=== PATIENT | female | born 2000 | race Caucasian/White ===

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

== ENCOUNTER 2020-10-17 03:07 | Emergency (ER) | payer OTHER ==
--- NOTE | 2020-10-17 03:22 | ED Physician Documentation ---
PD HPI NVD - Stated complaint Stated Complaint: NAUSEA, CHEST PRESSURE - Chief complaint Chief Complaint: General - History obtained from History obtained from: Patient - History of Present Illness Timing - onset: How many days ago (2) Timing - duration: Days (2) Timing - details: Gradual onset (she was Rx scopolamine patch for motion sickness by her PCP, in prep for her returning to college (flying to [place]). Previously used Dramamine but makes her sleepy. PCP felt the patch would work better. She wanted to ensure not side effects from it so tried it 2 days ago at home, before travel.), Still present (worse this evening, so she is wondering about scopolamine withdrawal instead/in addition now.), Other (onset of blurred vision, dry mouth, lightheaded, and dizzy several hours after placing patch behind right ear. She removed the scopolamine patch after just 3/4 of a day and washed with soap and water. Has continued with symptoms yesterday and now into overnight, with actually worse dizziness, nausea) Associated symptoms: Dizzy, Loss of appetite (nausea). No: Fever, Abdominal pain Contributing factors: Other (scopolamine patch for part of a day). No: Sick contact, Bad food Worsened by: Moving. No: Eating Similar symptoms before: Has not had sx before Recently seen: Clinic (routine physical before going back to college.) Review of Systems Constitutional: denies: Fever, Chills Nose: denies: Rhinorrhea / runny nose, Congestion Throat: denies: Sore throat Respiratory: denies: Cough Skin: denies: Rash, Lesions Endocrine: denies: Weight loss PD PAST MEDICAL HISTORY - Past Medical History HEENT: Other (motion sickness easily) - Present Medications Home Medications: Ambulatory Orders Medication Instructions Recorded Confirmed Cyclobenzaprine [Flexeril] 10 mg PO DAILY 10/17/20 10/17/20 Meclizine [Antivert] 25 mg PO Q6H PRN #20 tablet 10/17/20 dexAMETHasone [Decadron] 4 mg PO DAILY 3 Days #12 tablet 10/17/20 - Allergies Allergies/Adverse Reactions: Allergies Allergy/AdvReac Type Severity Reaction Status Date / Time No Known Drug Allergies Allergy Verified 10/17/20 03:20 PD ED PE NORMAL - Vitals Vital signs reviewed: Yes (some tachypnea, without really obvious. ) - General General: Alert and oriented X 3, Well developed/nourished - HEENT HEENT: PERRL, EOMI (no nystagmus) - Neck Neck: Supple, no meningeal sign, No adenopathy - Cardiac Cardiac: RRR, No murmur - Respiratory Respiratory: Clear bilaterally - Derm Derm: Normal color, Warm and dry - Neuro Neuro: Alert and oriented X 3, purchase analyst 2-12 intact, No motor deficit, No sensory deficit, Normal speech Results - Vitals Vitals: Vital Signs - 24 hr 10/17/20 10/17/20 03:15 05:14 Temperature 36.8 C Heart Rate 97 85 Respiratory 16 21 Rate Blood Pressure 131/76 H 106/94 H O2 Saturation 100 100 Oxygen O2 Source Room air - Labs Labs: Laboratory Tests 10/17/20 10/17/20 03:49 03:49 Sodium 135 Potassium 2.9 L Chloride 109 Carbon Dioxide 16 L Anion Gap 10.0 BUN 10 Creatinine 0.7 Estimated GFR (MDRD) 106 Glucose 107 H Calcium 9.0 Magnesium 1.9 Total Bilirubin 0.5 AST 18 ALT 23 Alkaline Phosphatase 83 Total Protein 7.3 Albumin 4.0 Globulin 3.3 Albumin/Globulin Ratio 1.2 TSH 4.42 PD MEDICAL DECISION MAKING - ED course Complexity details: reviewed results (low potassium, partly may be related to hyperventilation (low CO2 of 16 corroborates the clinical appearance of hyperventilating some). This should normalize with more regular respirations, but can give supplement as well. She says she is feeling reasonably better after fluids/meds here.), re-evaluated patient (reference at [facility] and some case report of treatment of symptoms (side effects and withdrawal effects) can be done with Meclizine. ), considered differential (some of the symptoms sound like anticholinergic side effects with blurred vision, dry mouth and some confusion. May be withdrawal symptoms, though would seem less likely after just 1 day of the patch. There does seem to be some hyperventilation component on exam as well. ), d/w patient Departure - Departure Disposition: 01 Home, Self Care Clinical Impression: Nausea, Dizziness, Side effect of medication, Hypokalemia Condition: Stable Record reviewed to determine appropriate education?: Yes Instructions: Hypokalemia Dc Follow-Up: [facility] [Provider Group] Prescriptions: Meclizine [Antivert] 25 mg PO Q6H PRN #20 tablet PRN Reason: Vertigo dexAMETHasone [Decadron] 4 mg PO DAILY 3 Days #12 tablet Comments: Stay well-hydrated through the day today. Ondansetron if needed for nausea e very 4-6 hours. I would anticipate the effects of the scopolamine to wear off more through the day today. Hydration will be helpful. Also add some potassium containing supplements or foods as your potassium was a little bit low. This would also account for some of the numbness and tingling feeling. I would anticipate improvement over the next day back to normal. For subsequent travel, you can use a combination of dexamethasone which is a mild steroid medicine but also helps with nausea. Take this for 1 to 2 days prior to travel and the day of as well. To add add meclizine every 6 hours if needed for motion sickness. Discharge Date/Time: 10/17/20 05:18
[2020-10-17] MEDS ORDERED: SODIUM CHLORIDE 0.9% 1,000 ML IV STA (03:37)
[2020-10-17] MEDS ORDERED: ONDANSETRON 4 MG/2 ML VIAL IVP STA ×2 (03:37→04:55)
[2020-10-17] MEDS ORDERED: diazePAM INJ 5 MG/ML SYRINGE IVP STA (03:38)
[2020-10-17] MEDS ORDERED: DEXAMETHASONE 10 MG/ML VIAL IVP STA (03:43)
[2020-10-17 04:08] LABS: ALBUMIN/GLOBULIN RATIO 1.2 (1.0-2.2); BILIRUBIN,TOTAL 0.5 mg/dL (0.2-1.0); CREATININE 0.7 mg/dL (0.4-1.0); MAGNESIUM 1.9 mg/dL (1.7-2.8); TOTAL PROTEIN 7.3 g/dL (6.7-8.2)
[2020-10-17] MEDS ORDERED: POTASSIUM CHLORIDE 20 MEQ TABLET PO STA (04:47)
[2020-10-17] MEDS ORDERED: POTASSIUM CHLOR 10 MEQ/100 ML 10 MEQ/100 ML BAG IV ONE (04:47)
[2020-10-17] MEDS ORDERED: ONDANSETRON ODT 4 MG Prepack 2 TL PRN (04:59)
[2020-10-17 05:15] VITALS: BP 106/94
== END 2020-10-17 05:18 | disposition home or self-care (01) ==
LOC: ED 03:07
DX: R42 Dizziness and giddiness (principal); R11.0 Nausea; T44.3X5A Adverse effect of other parasympatholytics [anticholinergics and antimuscarinics] and spasmolytics, initial encounter; E87.6 Hypokalemia
CPT/HCPCS: 36415; 80053; 83735; 84443; 93005; 96374; 96375; 96376; 99284; A9270

== ENCOUNTER 2020-10-20 06:53 | Emergency (ER) | payer OTHER ==
--- NOTE | 2020-10-20 07:11 | ED Physician Documentation ---
PD HPI HEENT - Stated complaint Stated Complaint: SOA/CHEST PX - Chief complaint Chief Complaint: Resp - History obtained from History obtained from: Patient - History of Present Illness Timing - onset: How many days ago (She had started with dizziness lightheadedness and some ear pressure after scopolamine patch several days ago. Seen in the ER and found to have some mild hyperventilation and low potassium. Discharged with Zofran. She is continued with dizziness and nausea and now having some ringing in her ears) Timing - duration: Days Timing - details: Gradual onset, Still present, Waxing and waning Location: Right ear, Left ear, Other (also overnight was having some chest pressure and aching feeling. The vertigo is worse with head movement and sitting up, and lying on her side in bed.). No: Sinuses Associated symptoms: No: Fever, Congestion, Rhinorrhea, Headache (minimal headache at times, no consistent.), Cough Similar symptoms before: No diagnosis (previously get motion sickness easily for years. Episodes of vertigo with movement at times. Has had consistent symptoms the past several days. Had Rx for scopolamine patch to try for motion sickness and Flexeril for upper back pains. Symptoms really after those meds, though similar to prior sxs.) Recently seen: Clinic (5 days ago with initial Rxs. Then in ER 3 days ago for presumed side effects of meds. Follow up in clinic yesterday and is getting Neuro referral for her vertigo (not ENT per patient). Has had worse symptoms since yesterday with tinnitus, feeling chest pressure overnight. No vision loss, focal weak.), Emergency Dept Review of Systems Constitutional: reports: Chills. denies: Fever Eyes: reports: Photophobia (mild the past few days. Less today.) Ears: reports: Tinnitus/ringing. denies: Ear pain (but has feeling of pressure in ears, left more.), Drainage/discharge Nose: reports: Sinus pressure / pain. denies: Rhinorrhea / runny nose, Co ngestion Throat: denies: Sore throat (but feeling of dry throat) Cardiac: reports: Chest pain / pressure (last night while lying in bed.). denies: Palpitations, Pedal edema, Calf pain Respiratory: reports: Dyspnea. denies: Cough GI: reports: Nausea. denies: Abdominal Pain, Vomiting, Diarrhea : reports: Frequency. denies: Dysuria, Discharge Skin: denies: Rash Neurologic: denies: Focal weakness, Numbness, Difficulty speaking, Near syncope (but feeling of vertigo when sitting up. Able to walk without ataxia.), Altered mental status, Headache, Head injury PD PAST MEDICAL HISTORY - Past Medical History Past Medical History: Yes Cardiovascular: None Respiratory: None Neuro: Migraines, Motion sickness Endocrine/Autoimmune: None HEENT: Other Musculoskeletal: Chronic back pain - Past Surgical History Past Surgical History: No - Present Medications Home Medications: Ambulatory Orders Medication Instructions Recorded Confirmed Cyclobenzaprine [Flexeril] 10 mg PO DAILY 10/17/20 10/20/20 Meclizine [Antivert] 25 mg PO Q6H PRN #20 tablet 10/17/20 10/20/20 dexAMETHasone [Decadron] 4 mg PO DAILY 3 Days #12 tablet 10/17/20 10/20/20 Fluticasone [Flonase] 2 sprays PAZ DAILY #1 bottle 10/20/20 Meclizine [Antivert] 25 mg PO Q6H PRN #30 tablet 10/20/20 dexAMETHasone [Decadron] 4 mg PO DAILY #5 tablet 10/20/20 - Allergies Allergies/Adverse Reactions: Allergies Allergy/AdvReac Type Severity Reaction Status Date / Time No Known Drug Allergies Allergy Verified 10/20/20 07:04 - Social History Does the pt smoke?: No Smoking Status: Never smoker Does the pt drink ETOH?: No Does the pt have substance abuse?: No - Immunizations Immunizations are current?: Yes - POLST Patient has POLST: No PD ED PE NORMAL - Vitals Vital signs reviewed: Yes - General General: Alert and oriented X 3, Well developed/nourished, Other (seems anxious) - HEENT HEENT: PERRL, EOMI (with nystagmus to the left), Ears normal, Pharynx benign. No: Moist mucous membranes (somewhat dry mucosa) - Neck Neck: Supple, no meningeal sign, No adenopathy - Cardiac Cardiac: RRR, No murmur - Respiratory Respiratory: Clear bilaterally - Abdomen Abdomen: Soft, Non tender - Derm Derm: Normal color, Warm and dry - Extremities Extremities: Normal ROM s pain, No edema, No calf tenderness / cord - Neuro Neuro: Alert and oriented X 3, paper bag making machinist 2-12 intact, No motor deficit, No sensory deficit, Normal speech Eye Opening: Spontaneous Motor: Obeys Commands Verbal: Oriented GCS Score: 15 Results - Vitals Vitals: Vital Signs - 24 hr 10/20/20 10/20/20 07:00 07:04 Temperature 36.4 C L 36.4 C L Heart Rate 93 93 Respiratory 16 16 Rate Blood Pressure 119/75 119/75 O2 Saturation 99 99 Oxygen O2 Source Room air - EKG (time done) 07:04 Rate: Rate (enter#) (70) Rhythm: NSR [place]: Normal Intervals: Normal [place] QRS: Normal Ischemia: Normal ST segments. No: ST elevation c/w ischemia, ST depression - Labs Labs: Laboratory Tests 10/20/20 10/20/20 10/20/20 07:45 07:45 07:50 Sodium 136 Potassium 3.1 L Chloride 103 Carbon Dioxide 19 L Anion Gap 14.0 H BUN 9 Creatinine 0.8 Estimated GFR (MDRD) 91 Glucose 94 Calcium 9.8 Urine Color YELLOW Urine Clarity CLEAR Urine pH 7.0 Ur Specific [place] <=1.005 Urine Protein NEGATIVE Urine Glucose (UA) NEGATIVE Urine Ketones 15 H Urine Occult Blood NEGATIVE Urine Nitrite NEGATIVE Urine Bilirubin NEGATIVE Urine Urobilinogen 0.2 (NORMAL) Ur Leukocyte Esterase NEGATIVE Ur Microscopic Review NOT INDICATED Urine Culture Comments NOT INDICATED Urine HCG, Qual NEGATIVE PD MEDICAL DECISION MAKING - ED course Complexity details: considered differential (with the vertigo and also now some tinnitus, sounds like inner ear/vertigo, ? [place]. Seems more like ENT referral would be initial. Can try Meclizine and decadron. Will recheck K, as was low few days ago. get CXR and UA. Consider MRI but defer to ENT for technique/study type. ), d/w patient ED course: She states she last took the Flexeril a day ago. I missed that she was on that as well as the scopolamine at prior ER visit. May be having side effects of that as well as the underlying vertigo, given some feeling lightheaded, dry mouth, light sensitive. Departure - Departure Disposition: Home, Self Care Clinical Impression: Vertigo, Nausea, Chest discomfort Condition: Stable Record reviewed to determine appropriate education?: Yes Instructions: ED Vertigo Unspecified Follow-Up: FRANCISCO CASTRO, DO [Primary Care Provider] - [facility] [Provider Group] Prescriptions: Meclizine [Antivert] 25 mg PO Q6H PRN #30 tablet PRN Reason: Vertigo dexAMETHasone [Decadron] 4 mg PO DAILY #5 tablet Fluticasone [Flonase] 2 sprays PAZ DAILY #1 bottle Comments: Continue to stay adequately hydrated. Hold the Cyclobenzaprine muscle relaxant. Use Decadron steroid daily for 5 days, then start the steroid nasal spray daily. Meclizine three times daily for 2-3 days then as needed for vertigo. I would cornejo ggest following up with ENT about your symptoms, and can continue with Neurology referral that your provider is initiating. Tylenol if needed for pains. Activity as tolerated.
[2020-10-20] MEDS ORDERED: MECLIZINE 12.5 MG TABLET PO STA (07:37)
[2020-10-20] MEDS ORDERED: ACETAMINOPHEN 325 MG TABLET PO STA (07:56)
[2020-10-20 07:58] LABS: BILIRUBIN,URINE NEGATIVE (NEGATIVE); GLUCOSE, URINE (UA) NEGATIVE (NEGATIVE); KETONES,URINE (UA) 15 mg/dL (NEGATIVE); LEUKOCYTE ESTERASE, URINE NEGATIVE (NEGATIVE); NITRITE,URINE NEGATIVE (NEGATIVE); OCCULT BLOOD,URINE NEGATIVE (NEGATIVE); PROTEIN,URINE NEGATIVE (NEGATIVE); UROBILINOGEN,URINE 0.2 (NORMAL) E.U./dL (NORMAL)
[2020-10-20 07:59] LABS: CLARITY,URINE CLEAR (CLEAR); HCG UR QUAL NEGATIVE
[2020-10-20 08:05] LABS: CALCIUM 9.8 mg/dL (8.5-10.3); CREATININE 0.8 mg/dL (0.4-1.0)
--- NOTE | 2020-10-20 08:27 | XRAY Report ---
PROCEDURE: Chest 1 View X-Ray INDICATIONS: chest pain TECHNIQUE: One view of the chest was acquired. COMPARISON: None FINDINGS: Surgical changes and devices: None. Lungs and pleura: No pleural effusions or pneumothorax. Lungs are clear. Mediastinum: Mediastinal contours appear normal. Heart size is normal. Bones and chest wall: No suspicious bony lesions. Overlying soft tissues appear unremarkable. IMPRESSION: No evidence of an acute cardiopulmonary abnormality. Reviewed by: Constantin Lopez DO on 10/20/2020 7:25 AM [facility] Approved by: Constantin Lopez DO on 10/20/2020 7:25 AM [facility] Station ID: [id number]
[2020-10-20] MEDS ORDERED: CHERRY SYRUP 10 ML UDC PO ONE (08:57)
[2020-10-20] MEDS ORDERED: DEXAMETHASONE 10 MG/ML VIAL PO STA (08:57)
[2020-10-20 09:11] VITALS: BP 110/60
== END 2020-10-20 09:11 | disposition home or self-care (01) ==
LOC: ED 06:53
DX: R42 Dizziness and giddiness (principal); R11.0 Nausea; R07.89 Other chest pain
CPT/HCPCS: 36415; 71045; 80048; 81003; 81025; 93005; 99284; A9270; 81001; 87086

== ENCOUNTER 2023-02-19 16:51 | Emergency (ER) | payer OTHER ==
--- NOTE | 2023-02-19 17:24 | ED Physician Documentation ---
History of Present Illness - Stated complaint Stated Complaint: SOA/SLOW HR - Chief complaint Chief Complaint: Resp - History obtained from History obtained from: Patient - Additonal information Additional information: The patient comes to the emergency department chief complaint of onset of "slow heartbeat" in the middle of the night last night. She states she also felt as though she had a dry mouth and that she had "brain fog". The patient states that she has had symptoms like this before and that she is concerned that perhaps her calcium is too high because she has been eating a lot of calcium rich foods and also taking a whole bunch of Tums. The patient denies any specific feeling of anxiety. She states she has had anxiety before but that this was mainly associated with very specific situations. The patient denies any illness recently. She states she had a little bit of chest tightness when this first started and that this has persisted a bit. No other complaints at this time. PD PAST MEDICAL HISTORY - Past Medical History Cardiovascular: None Respiratory: None Neuro: Migraines, Motion sickness Endocrine/Autoimmune: None HEENT: Other Musculoskeletal: Chronic back pain - Past Surgical History Past Surgical History: No - Present Medications Home Medications: Ambulatory Orders Medication Instructions Recorded Confirmed No Known Home Medications 02/19/23 02/19/23 - Allergies Allergies/Adverse Reactions: Allergies Allergy/AdvReac Type Severity Reaction Status Date / Time No Known Drug Allergies Allergy Verified 02/19/23 17:09 - Social History Does the pt smoke?: No Smoking Status: Never smoker Does the pt drink ETOH?: No Does the pt have substance abuse?: No - Immunizations Immunizations are current?: Yes - POLST Patient has POLST: No PD ED PE NORMAL - Vitals Vital signs reviewed: Yes - General General: Alert and oriented X 3, No acute distress, Well developed/nourished, Other (The patient appears slightly anxious.) - HEENT HEENT: Atraumatic, PERRL, EOMI, Moist mucous membranes - Neck Neck: Supple, no meningeal sign - Cardiac Cardiac: RRR, No murmur, Strong equal pulses - Respiratory Respiratory: No respiratory distress, Clear bilaterally - Abdomen Abdomen: Soft, Non tender, Non distended - Derm Derm: Normal color, Warm and dry, No rash - Extremities Extremities: No deformity, No edema - Neuro Neuro: Alert and oriented X 3 - Psych Psych: Normal mood, Normal affect Results - Vitals Vitals: Vital Signs - 24 hr 02/19/23 17:05 Temperature 37.0 C Heart Rate 92 Respiratory 28 H Rate Blood Pressure 122/72 O2 Saturation 100 Oxygen O2 Source Room air - EKG (time done) 1656 EKG releavant findings:: EKG personally interpreted by author of this note. Relevant findings are: Rate: Rate (enter#) (100) Rhythm: Sinus tachycardia, LAE [place]: Normal Intervals: Normal [place], Prolonged QT Ischemia: Non specific changes Compare to prior EKG: Old EKG unavailable Computer interpretation: Agree with computer - Labs Labs: Laboratory Tests 02/19/23 17:24 Sodium 136 Potassium 3.4 L Chloride 105 Carbon Dioxide 16 L Anion Gap 15.0 H BUN 10 Creatinine 0.7 Estimated GFR (MDRD) 104 Glucose 95 Calcium 9.8 PD Medical Decision Making - ED course Complexity details: reviewed results, re-evaluated patient, considered differe ntial, d/w patient ED course: Patient appeared slightly anxious but overall was fairly well-appearing. She did have some nonspecific EKG abnormalities and I did obtain a BMP with calcium on the patient. She declined any treatment for anxiety in the emergency department. Departure - Departure Disposition: Home, Self Care Clinical Impression: Palpitations with regular cardiac rhythm Condition: Stable Instructions: ED Palpitations Comments: Your labs, including calcium level and potassium level, look good. Your symptoms could be from anxiety or they could be from a viral syndrome that your body is fighting off. Please be sure you get plenty of fluids to drink and follow-up with your primary doctor for further concerns. No emergent condition has been identified today.
[2023-02-19 17:37] LABS: CALCIUM 9.8 mg/dL (8.5-10.3); CREATININE 0.7 mg/dL (0.4-1.0); POTASSIUM 3.4 mmol/L (3.5-5.0)
[2023-02-19 18:21] VITALS: BP 103/65
== END 2023-02-19 18:18 | disposition home or self-care (01) ==
LOC: ED 16:51
DX: R00.2 Palpitations (principal)
CPT/HCPCS: 36415; 80048; 93005; 99283; 99284

== ENCOUNTER 2023-02-19 23:13 | Emergency (ER) | payer OTHER ==
--- NOTE | 2023-02-19 23:45 | ED Physician Documentation ---
History of Present Illness - Stated complaint Stated Complaint: NECK/UPPER BACK PX/ - Chief complaint Chief Complaint: General - History obtained from History obtained from: Patient - Additonal information Additional information: 22yF who was seen here earlier today for "slow heart rate" and "brain fog" presents again with nonspecific symptoms Of weakness, body aches, frontal headache, and fever and chills.Patient states she took an Excedrin without relief. Review of Systems Constitutional: reports: Chills, Myalgias, Fatigue Throat: denies: Sore throat Respiratory: denies: Cough Musculoskeletal: reports: Neck pain, Back pain Neurologic: reports: Headache PD PAST MEDICAL HISTORY - Past Medical History Cardiovascular: None Respiratory: None Neuro: Migraines, Motion sickness Endocrine/Autoimmune: None HEENT: Other Musculoskeletal: Chronic back pain - Past Surgical History Past Surgical History: No - Present Medications Home Medications: Ambulatory Orders Medication Instructions Recorded Confirmed No Known Home Medications 02/19/23 02/19/23 - Allergies Allergies/Adverse Reactions: Allergies Allergy/AdvReac Type Severity Reaction Status Date / Time No Known Drug Allergies Allergy Verified 02/19/23 23:23 - Social History Does the pt smoke?: No Smoking Status: Never smoker Does the pt drink ETOH?: No Does the pt have substance abuse?: No - Immunizations Immunizations are current?: Yes - POLST Patient has POLST: No PD ED PE NORMAL - Vitals Vital signs reviewed: Yes - General General: Alert and oriented X 3, No acute distress, Well developed/nourished - HEENT HEENT: Atraumatic, PERRL, EOMI - Neck Neck: Supple, no meningeal sign - Derm Derm: Normal color, Warm and dry Results - Vitals Vitals: Vital Signs - 24 hr 02/19/23 23:17 Temperature 36.1 C L Heart Rate 100 Respiratory 17 Rate Blood Pressure 120/71 O2 Saturation 100 Oxygen O2 Source Room air PD Medical Decision Making - ED course ED course: Well-appearing 22-year-old presents with various nonspecific symptoms. she had bloodwork earlier today that was unremarkable and has normal vital signs here in the ED. Offered toradol for symptomatic treatment and she declined. Recommended f/u with pcp. return precautions given. Departure - Departure Disposition: 01 Home, Self Care Clinical Impression: Myalgia, Headache, Weakness Condition: Stable Instructions: IBUPROFEN (Adult) Comments: You were seen in the emergency department for repeat medical evaluation. Your vital signs and exam are normal. Please follow-up with your primary care provider. It is possible that you have a virus and will need to get lots of rest and stay well-hydrated. Take ibuprofen 600 mg every 6 hours as needed for pain. Return to the emergency department if you have other concerns.
[2023-02-20 00:08] VITALS: BP 137/62
== END 2023-02-20 00:07 | disposition home or self-care (01) ==
LOC: ED 23:13
DX: R53.1 Weakness (principal); M79.10 Myalgia, unspecified site; R51.9 Headache, unspecified; Z20.822 Contact with and (suspected) exposure to COVID-19; R00.2 Palpitations
CPT/HCPCS: 36415; 80048; 93005; 99283; 99284

== ENCOUNTER 2023-11-21 13:39 | Emergency (ER) | payer OTHER ==
[2023-11-21 13:47] VITALS: O2SAT 100
--- NOTE | 2023-11-21 13:47 | ED Physician Documentation ---
PD HPI ABD PAIN - Stated complaint Stated Complaint: RT ABD PX/FEVER/BLOATING - Chief complaint Chief Complaint: Abd Pain - History obtained from History obtained from: Patient - History of Present Illness Timing - onset: How many days ago (2) Timing - duration: Days (2) Timing - details: Gradual onset, Still present Quality: Cramping, Aching, Pain Location: Periumbilical, RLQ Radiation: No: Lower back Improved by: No: Eating Worsened by: Moving, Position (worse lying on left side last night in bed). No: Eating Associated symptoms: No: Fever, Nausea, Diarrhea Similar symptoms before: Has not had sx before Recently seen: Clinic (walk in today and referred to ER "to get a CT scan" for concern of appendicitis.) Review of Systems Constitutional: denies: Fever, Chills Nose: denies: Rhinorrhea / runny nose, Congestion Throat: denies: Sore throat Respiratory: denies: Cough GI: reports: Abdominal Pain. denies: Nausea, Vomiting, Diarrhea : denies: Dysuria, Frequency, Discharge PD PAST MEDICAL HISTORY - Past Medical History Past Medical History: Yes Cardiovascular: None Respiratory: None Neuro: Migraines, Motion sickness Endocrine/Autoimmune: None HEENT: Other Musculoskeletal: Chronic back pain - Past Surgical History Past Surgical History: No - Present Medications Home Medications: Ambulatory Orders Medication Instructions Recorded Confirmed No Known Home Medications 02/19/23 02/19/23 - Allergies Allergies/Adverse Reactions: Allergies Allergy/AdvReac Type Severity Reaction Status Date / Time No Known Drug Allergies Allergy Verified 11/21/23 13:43 - Social History Does the pt smoke?: No Smoking Status: Never smoker Does the pt drink ETOH?: No Does the pt have substance abuse?: No - Immunizations Immunizations are current?: Yes - POLST Patient has POLST: No PD ED PE NORMAL - Vitals Vital signs reviewed: Yes - General General: Alert and oriented X 3, No acute distress, Well developed/nourished - Cardiac Cardiac: RRR, No murmur - Respiratory Respiratory: Clear bilaterally - Abdomen Abdomen: Normal bowel sounds, Soft, Non distended, No organomegaly, Other (Tender RLQ with mild local guarding. No percussion nor rebound tenderness. ) - Female Female : Deferred - Rectal Rectal: Deferred - Back Back: No CVA TTP - Derm Derm: Normal color, Warm and dry - Neuro Neuro: Alert and oriented X 3, Normal speech Results - Vitals Vitals: Vital Signs - 24 hr 11/21/23 11/21/23 13:43 15:45 Temperature 36.8 C Heart Rate 90 70 Respiratory 16 14 Rate Blood Pressure 119/70 122/78 O2 Saturation 100 100 Oxygen O2 Source Room air - Labs Labs: Laboratory Tests 11/21/23 11/21/23 11/21/23 14:10 14:10 14:10 WBC 7.6 RBC 4.67 Hgb 14.0 Hct 42.3 MCV 90.6 MCH 30.0 MCHC 33.1 RDW 12.6 Plt Count 287 MPV 9.9 Neut # (Auto) 4.6 Lymph # (Auto) 2.3 [place] # (Auto) 0.6 Eos # (Auto) 0.0 Baso # (Auto) 0.1 Absolute Nucleated RBC 0.00 Nucleated RBC % 0.0 Sodium 137 Potassium 2.9 L Chloride 103 Carbon Dioxide 21 Anion Gap 13.0 BUN 7 Creatinine 0.8 Estimated GFR (MDRD) 88 L Glucose 85 Calcium 10.1 Total Bilirubin 1.1 H AST 21 ALT 28 Alkaline Phosphatase 75 Total Protein 8.4 Albumin 4.9 Globulin 3.5 Albumin/Globulin Ratio 1.4 Lipase 17 Serum HCG, Qual NEGATIVE - Rads (name of study) abd/pelvic CT Relevant Findings:: Prelim report reviewed (Ovarian cyst with some vascularity. Normal appendix. No other acute findings.), EMP independent interpretation of test (Normal-appearing appendix. There is a right ovarian cyst approximately 3 cm with some wall thickening. No free fluid.) PD Medical Decision Making - ED course Complexity details: reviewed results (The patient was seen at the walk-in clinic and referred to the ER for further evaluation. She states they had told her to come to the ER "for a CT scan" and she preferred that over ultrasound when given the discussion of pros and cons for each.), considered differential (Patient with periumbilical to right lower quadrant pain for 1 to 2 days gradual onset and worse last night. Consider ovarian cyst versus kidney stone versus appendicitis versus other causes. Lab tests can be obtained but more saravia will be imaging.), d/w patient Reviewed Lab Results: The CT scan showed a normal appendix. There is an ovarian cyst without any signs of free fluid. Some inflammatory changes/vascularity to it. Negative test. Departure - Departure Disposition: 01 Home, Self Care Clinical Impression: Right lower quadrant abdominal pain, Ovarian cyst Clinical Impression: (Ruled Out): Appendicitis Condition: Stable Record reviewed to determine appropriate education?: Yes Instructions: ED Cyst Ovarian Follow-Up: Amelie Lentz MD [Primary Care Provider] - [facility] [Provider Group] Comments: Your CT scan shows a normal appendix. You do have a simple ovarian cyst that has some increased vascularity suggesting inflammation. No signs of it leaking or ruptured. I would suggest some anti-inflammatory such as ibuprofen or naproxen couple of tablets twice daily for the next several days to week to help with the inflamm ation. Add Tylenol 500 to 650 mg every 4-6 hours if needed for pains. Follow-up with your primary care or the women's clinic if not improved well over the next several days to week. Call for an appointment. Return if significantly worse pain unrelieved with the [id number] medicines. Comments suggestion would be to follow-up on these particularly if you are not having unrelieved symptoms over the next week or 2 but even potentially on a routine follow-up with ultrasound to ensure improvement of it over the next month or so. Forms: PCP List
[2023-11-21] MEDS: SODIUM CHLORIDE 0.9% 1,000 ML IV STA (14:24)
[2023-11-21 14:28] LABS: BASOPHILS # (AUTO) 0.1 10^3/uL (0.0-0.1); BASOPHILS % (AUTO) 0.9 %; EOSINOPHILS % (AUTO) 0.3 %; HCT - HEMATOCRIT 42.3 % (37.0-47.0); LYMPHOCYTES # (AUTO) 2.3 10^3/uL (1.5-3.5); MEAN CORPUSCULAR HGB CONC 33.1 g/dL (32.0-36.0); MEAN CORPUSCULAR VOLUME 90.6 fL (81.0-99.0); MEAN PLATELET VOLUME 9.9 fL (7.9-10.8); MONOCYTES # (AUTO) 0.6 10^3/uL (0.0-1.0); MONOCYTES % (AUTO) 8.3 %; NEUTROPHILS # (AUTO) 4.6 10^3/uL (1.5-6.6); NEUTROPHILS % (AUTO) 60.2 %; PLT - PLATELET COUNT 287 10^3/uL (130-450); RED BLOOD COUNT 4.67 10^6/uL (4.20-5.40); RED CELL DISTRIBUTION WIDTH 12.6 % (12.0-15.0); WHITE BLOOD COUNT 7.6 x10^3/uL (4.8-10.8)
[2023-11-21 14:43] LABS: ALBUMIN 4.9 g/dL (3.2-5.5); ALBUMIN/GLOBULIN RATIO 1.4 (1.0-2.2); BILIRUBIN,TOTAL 1.1 mg/dL (0.2-1.0); CALCIUM 10.1 mg/dL (8.5-10.3); CREATININE 0.8 mg/dL (0.6-1.3); POTASSIUM 2.9 mmol/L (3.5-4.5); TOTAL PROTEIN 8.4 g/dL (6.4-8.9)
[2023-11-21] MEDS ORDERED: iohexoL-300 100 ML VIAL ONE (14:47)
[2023-11-21] MEDS: iohexoL-300 100 ML VIAL IVP ONE (15:05)
[2023-11-21] MEDS: KETOROLAC 15 MG/ML VIAL IVP STA (15:19)
--- NOTE | 2023-11-21 15:21 | CT Report ---
PROCEDURE: Abdomen/Pelvis W INDICATIONS: RLQ pain for 1 1/2 days, eval appendix. CONTRAST: 100ml omni 300 TECHNIQUE: After the administration of intravenous contrast, a CT scan of the abdomen and pelvis was performed. Images were recorded and evaluated at appropriate window settings. Reformats: coronal and sagittal. F or radiation dose reduction, the following was used: automated exposure control, adjustment of mA and /or kV according to patient size. COMPARISON: None. FINDINGS: Image quality: Diagnostic. Lower chest: Soft tissue thickening can be seen involving the right lower lobe, which may related to mucus impaction. Liver: No solid mass. Gallbladder and biliary tree: Within normal limits. Spleen: No splenomegaly. Pancreas: No pancreatic ductal dilation. Adrenals: No adrenal nodule. Kidneys and ureters: No hydronephrosis. No renal cystic lesion which requires follow up. No solid mas s. Stomach, bowel and peritoneum: In this patient with this given history, scrutiny is given to the appe ndix. The appendix is within normal limits, without increased caliber or adjacent fatty stranding. No dilated loops of small bowel are seen. No significant colonic abnormality is seen. Lymph nodes: No central or retroperitoneal adenopathy. Vessels: No infrarenal aortic aneurysm. PELVIS Reproductive organs: The uterus is within normal limits. Within there is a prominent right ovary with hypervascularity and an internal cyst measuring 2.4 cm. There is a mild degree of inflammatory fluid seen within the right pelvis. The left adnexal region is within normal limits. Bladder: No abnormal wall thickening, accounting for underdistention. Pelvic lymph nodes: No pelvic adenopathy by size criteria. Bones: No aggressive osseous abnormality. Other: No significant ventral or inguinal hernia. IMPRESSION: Normal appendix. Abnormal right ovary, with an internal cyst and hypervascularity. Adjacent inflammatory change can be seen. - Please consider a follow-up pelvic ultrasound for further evaluation. There is abnormal soft tissue seen involving the right lower lobe, which may related to mucous impact ion. While no specific imaging follow-up is recommended in a patient of this age, attention should be paid to this focus on any future follow-up studies. Reviewed by: Cyrus Tomlin MD on 11/21/2023 2:19 PM [facility] Approved by: Cyrus Tomlin MD on 11/21/2023 2:19 PM [facility] Station ID: [id number]
[2023-11-21 16:01] LABS: HCG,QUALITATIVE BLOOD NEGATIVE
[2023-11-21 16:02] VITALS: BP 122/78
== END 2023-11-21 16:24 | disposition home or self-care (01) ==
LOC: ED 13:39
DX: R10.31 Right lower quadrant pain (principal); N83.201 Unspecified ovarian cyst, right side
CPT/HCPCS: 36415; 74177; 80053; 83690; 84703; 85025; 96374; 99283; 99284; Q9967